=== PATIENT | male | born 1990 | race Two or more races ===

== ENCOUNTER 2017-10-30 10:17 | Inpatient (IN) | payer OTHER ==
[~2017-10-30] VITALS: Ht 162.6 cm; Wt 86.0 kg
[2017-10-30] MEDS ORDERED: SODIUM CHLORIDE 0.9% 1,000 ML IV ONE ×2 (10:28→11:55)
[2017-10-30] MEDS ORDERED: SODIUM CHLORIDE FLUSH 10ML SYR IVF ONE (10:30)
[2017-10-30] MEDS ORDERED: ONDANSETRON ODT 4 MG PO ONE (10:30)
[2017-10-30] MEDS ORDERED: SODIUM CHLORIDE 0.9% 1,000ML IVBOLUS ONE (10:30)
[2017-10-30] MEDS ORDERED: ONDANSETRON ODT 4 MG ONE (10:36)
[2017-10-30] MEDS ORDERED: LORazepam 2 MG/ML, 1ML ONE (10:36)
[2017-10-30] MEDS: LORazepam 2 MG/ML, 1ML IVPush PRN ×3 (10:41→15:01)
[2017-10-30 10:55] LABS: BASOPHILS # (AUTO) 0.02 x10^3/uL (0-0.1); BASOPHILS % (AUTO) 0 % (0-1); EOSINOPHILS % (AUTO) 0 % (1-7); LYMPHOCYTES # (AUTO) 0.78 x10^3/uL (1-3.4); LYMPHOCYTES % (AUTO) 8 % (22-44); MD NO; MEAN CORPUSCULAR HEMOGLOBIN 33.1 pg (27.5-34.5); MEAN CORPUSCULAR HGB CONC 34.8 g/dL (33.2-36.2); MEAN CORPUSCULAR VOLUME 95.3 fL (81-97); MEAN PLATELET VOLUME 6.9 fL (7.4-10.4); MONOCYTES # (AUTO) 0.49 x10^3/uL (0.2-0.8); MONOCYTES % (AUTO) 5 % (2-9); NEUTROPHILS # (AUTO) 8.28 x10^3/uL (1.8-6.8); NEUTROPHILS % (AUTO) 86 % (42-75); PLATELET COUNT 210 x10^3/uL (130-400); RED BLOOD COUNT 5.36 x10^6/uL (4.38-5.82); RED CELL DISTRIBUTION WIDTH 13.5 % (9.4-14.8)
[2017-10-30 11:02] LABS: INTERNATIONAL NORMALIZED RATIO 1.03 (0.93-1.1); PROTHROMBIN TIME 10.6 Seconds (9.6-11.5)
[2017-10-30 11:05] LABS: ANION GAP 11 mmol/L (5-15); CALCIUM 9.3 mg/dL (8.5-10.1); CHLORIDE 103 mmol/L (98-107); SALICYLATE LEVEL 1.7 mg/dL (2.8-20.0)
[2017-10-30 11:09] LABS: ALANINE AMINOTRANSFERASE 68 U/L (12-78); ALKALINE PHOSPHATASE 50 U/L (45-117); BILIRUBIN,TOTAL 0.9 mg/dL (0.2-1.0); CREATININE 1.03 mg/dL (0.7-1.3); TOTAL PROTEIN 8.4 g/dL (6.4-8.2)
[2017-10-30 11:16] LABS: ACETAMINOPHEN < 2 mcg/mL (10-30)
[2017-10-30 11:52] LABS: AMPHETAMINE SCREEN, URINE Negative (Negative); BARBITURATE SCREEN, URINE Negative (Negative)
[2017-10-30 11:56] LABS: BENZODIAZEPINE SCREEN, URINE Positive (Negative); CANNABINOID SCREEN, URINE Negative (Negative); COCAINE SCREEN, URINE Negative (Negative); METHADONE SCREEN, URINE Negative (Negative); OPIATE SCREEN, URINE Negative (Negative)
[2017-10-30 11:57] LABS: MICROSCOPIC INDICATED
[2017-10-30 12:00] LABS: CULTURE INDICATED? NO
[2017-10-30] MEDS ORDERED: SODIUM CHLORIDE FLUSH 10ML SYR IVF PRN (12:00)
[2017-10-30] MEDS ORDERED: LORazepam 1MG TABLET PO PRN ×4 (12:30)
[2017-10-30] MEDS ORDERED: LORazepam 0.5MG TABLET PO PRN (12:30)
[2017-10-30] MEDS ORDERED: hydrALAzine 20 MG/ML, 1ML IVPush PRN (12:30)
[2017-10-30] MEDS ORDERED: BISACODYL 10 MG SUPP PR PRN (12:30)
[2017-10-30] MEDS ORDERED: POLYETHYLENE GLYCOL 17 GM PACKET PO PRN (12:30)
[2017-10-30] MEDS ORDERED: ACETAMINOPHEN 325 MG TABLET PO PRN (12:30)
[2017-10-30] MEDS ORDERED: DOCUSATE 100 MG CAPSULE PO PRN (12:30)
[2017-10-30] MEDS ORDERED: LORazepam 2 MG/ML, 1ML IV PRN (13:00)
[2017-10-30 13:13] LABS: FREE T4 (FREE THYROXINE) 0.95 ng/dL (0.76-1.46); THYROID STIMULATING HORMONE 1.68 mIU/L (0.358-3.740)
[2017-10-30 14:00] VITALS: BP 127/81
[2017-10-30 14:29] VITALS: BP 127/81
[2017-10-30] MEDS: NICOTINE 14MG/24 HR PATCH.TD24 TD SCH (16:05)
[2017-10-30] MEDS: SODIUM CHLORIDE 0.9% 1,000 ML IV SCH ×2 (16:05→18:59)
[2017-10-30 18:30] LABS: TROPONIN I < 0.015 ng/mL (0.000-0.045)
[2017-10-30 19:12] VITALS: BP 108/67
[2017-10-30] MEDS: FAMOTIDINE 20 MG TABLET PO SCH (19:57)
[2017-10-30] MEDS: POTASSIUM CHLORIDE 20 MEQ, MAGNESIUM SULFATE 2 GM, THIAMINE 100 MG, MVI ADULT 10 ML, FO... IV SCH (19:57)
[2017-10-31 00:37] VITALS: BP 131/90
[2017-10-31 05:40] LABS: CHLORIDE 108 mmol/L (98-107)
[2017-10-31 05:46] LABS: ALANINE AMINOTRANSFERASE 55 U/L (12-78); ALBUMIN 3.2 g/dL (3.4-5.0); ALKALINE PHOSPHATASE 42 U/L (45-117); ANION GAP 3 mmol/L (5-15); BILIRUBIN,TOTAL 1.2 mg/dL (0.2-1.0); CALCIUM 8.2 mg/dL (8.5-10.1); CREATININE 0.91 mg/dL (0.7-1.3); TOTAL PROTEIN 7.2 g/dL (6.4-8.2)
[2017-10-31 05:57] LABS: MEAN CORPUSCULAR HEMOGLOBIN 33.2 pg (27.5-34.5); MEAN CORPUSCULAR HGB CONC 35.4 g/dL (33.2-36.2); MEAN CORPUSCULAR VOLUME 93.9 fL (81-97); MEAN PLATELET VOLUME 7.2 fL (7.4-10.4); PLATELET COUNT 190 x10^3/uL (130-400); RED BLOOD COUNT 5.14 x10^6/uL (4.38-5.82); RED CELL DISTRIBUTION WIDTH 13.8 % (9.4-14.8)
[2017-10-31] MEDS: SODIUM CHLORIDE 0.9% 1,000 ML IV SCH ×2 (06:18→13:46)
[2017-10-31 06:39] LABS: BASOPHILS # (AUTO) 0.03 x10^3/uL (0-0.1); BASOPHILS % (AUTO) 1 % (0-1); EOSINOPHILS # (AUTO) 0.15 x10^3/uL (0-0.4); EOSINOPHILS % (AUTO) 3 % (1-7); LYMPHOCYTES # (AUTO) 1.34 x10^3/uL (1-3.4); LYMPHOCYTES % (AUTO) 23 % (22-44); MD NO; MONOCYTES # (AUTO) 0.71 x10^3/uL (0.2-0.8); MONOCYTES % (AUTO) 12 % (2-9); NEUTROPHILS # (AUTO) 3.66 x10^3/uL (1.8-6.8); NEUTROPHILS % (AUTO) 62 % (42-75)
[2017-10-31 07:05] VITALS: BP 115/70
[2017-10-31] MEDS: FAMOTIDINE 20 MG TABLET PO SCH ×2 (08:07→19:59)
[2017-10-31] MEDS: NICOTINE 14MG/24 HR PATCH.TD24 TD SCH (13:47)
[2017-10-31 14:31] VITALS: BP 127/84
[2017-10-31 18:54] VITALS: BP 148/95
[2017-10-31] MEDS: POTASSIUM CHLORIDE 20 MEQ, MAGNESIUM SULFATE 2 GM, THIAMINE 100 MG, MVI ADULT 10 ML, FO... IV SCH (19:59)
[2017-11-01 00:13] VITALS: BP 161/107
[2017-11-01 02:30] VITALS: BP 131/91
[2017-11-01] MEDS: SODIUM CHLORIDE 0.9% 1,000 ML IV SCH ×2 (05:46→13:37)
[2017-11-01 06:25] LABS: ALBUMIN 3.8 g/dL (3.4-5.0); ANION GAP 5 mmol/L (5-15); CALCIUM 8.8 mg/dL (8.5-10.1); CHLORIDE 106 mmol/L (98-107)
[2017-11-01 06:28] LABS: ALANINE AMINOTRANSFERASE 65 U/L (12-78); ALKALINE PHOSPHATASE 47 U/L (45-117); CREATININE 0.93 mg/dL (0.7-1.3); TOTAL PROTEIN 8.5 g/dL (6.4-8.2)
[2017-11-01 07:11] VITALS: BP 121/82
[2017-11-01] MEDS: FAMOTIDINE 20 MG TABLET PO SCH (09:30)
[2017-11-01 12:44] VITALS: BP 157/104
[2017-11-01] MEDS: NICOTINE 14MG/24 HR PATCH.TD24 TD SCH (13:28)
[2017-11-01 13:58] VITALS: BP 161/95
== END 2017-11-01 14:52 | disposition left against medical advice (07) | DRG 101 ==
LOC: ED 11:54 → EDIP 11:55 → ED 12:28 → 4EST 13:15
PROVIDERS: ADMIT Hospitalist; ATTEND Family Medicine
DX: G40.89 Other seizures (principal); F10.231 Alcohol dependence with withdrawal delirium; F10.221 Alcohol dependence with intoxication delirium; F17.210 Nicotine dependence, cigarettes, uncomplicated; Y90.0 Blood alcohol level of less than 20 mg/100 ml; Z53.21 Procedure and treatment not carried out due to patient leaving prior to being seen by health care provider; Z71.6 Tobacco abuse counseling
CPT/HCPCS: 36415; 99285; J7042; 70450; 71045; 80053; 80307; 80329; 81001; 82140; 82550; 83690; 83735; 84100; 84439; 84443; 84484; 85025; 85610; 85730; 87040; 93005; 96360; J3411; J3475; J3480; Q0162; G0480; J2060; J7030

== ENCOUNTER 2018-05-21 14:13 | Emergency (ER) | payer SELFPAY ==
[~2018-05-21] VITALS: Ht 172.7 cm; Wt 78.0 kg
[2018-05-21] MEDS ORDERED: LORazepam 1MG TABLET ONE (14:22)
[2018-05-21] MEDS ORDERED: LORazepam 1MG TABLET PO ONE (14:30)
[2018-05-21 14:38] LABS: BASOPHILS # (AUTO) 0.02 x10^3/uL (0-0.1); BASOPHILS % (AUTO) 1 % (0-1); EOSINOPHILS # (AUTO) 0.05 x10^3/uL (0-0.4); EOSINOPHILS % (AUTO) 1 % (1-7); LYMPHOCYTES % (AUTO) 27 % (22-44); MD NO; MEAN CORPUSCULAR HEMOGLOBIN 32.2 pg (27.5-34.5); MEAN CORPUSCULAR HGB CONC 34.6 g/dL (33.2-36.2); MEAN CORPUSCULAR VOLUME 92.9 fL (81-97); MEAN PLATELET VOLUME 6.5 fL (7.4-10.4); MONOCYTES # (AUTO) 0.23 x10^3/uL (0.2-0.8); MONOCYTES % (AUTO) 5 % (2-9); NEUTROPHILS # (AUTO) 2.92 x10^3/uL (1.8-6.8); NEUTROPHILS % (AUTO) 66 % (42-75); PLATELET COUNT 328 x10^3/uL (130-400); RED BLOOD COUNT 5.79 x10^6/uL (4.38-5.82)
[2018-05-21 14:48] LABS: ALBUMIN 3.7 g/dL (3.4-5.0); ANION GAP 9 mmol/L (5-15); CALCIUM 8.5 mg/dL (8.5-10.1); CHLORIDE 108 mmol/L (98-107); CREATININE 1.28 mg/dL (0.7-1.3)
--- NOTE | 2018-05-21 15:30 | NUR ---
PT SLEEPING IN [facility]. NAD NOTED AT THIS TIME. WILL CONTINUE TO MONITOR.
--- NOTE | 2018-05-21 16:30 | NUR ---
PT SLEEPING IN GURNEY. EQUAL RISE AND FALL OF CHEST. NAD NOTED. WILL CONTINUE TO MONITOR.
[2018-05-21 16:49] VITALS: BP 120/78
--- NOTE | 2018-05-21 17:06 | NUR ---
PT GIVEN D/C PAPERWORK. PT WITH STEADY GAIT WHILE AMUBLATING OUT OF DEPARTMENT. PT VERBALIZED UNDERSTANDING OF PAPERWORK.
== END 2018-05-21 17:10 | disposition home or self-care (01) ==
LOC: ED 16:02
DX: F10.239 Alcohol dependence with withdrawal, unspecified (principal); F17.210 Nicotine dependence, cigarettes, uncomplicated
CPT/HCPCS: 36415; 80048; 82040; 85025; 99283

== ENCOUNTER 2018-10-06 11:45 | Emergency (ER) | payer SELFPAY ==
[~2018-10-06] VITALS: Ht 165.1 cm; Wt 85.0 kg
[2018-10-06] MEDS ORDERED: THIAMINE 100MG TABLET PO ONE (12:00)
[2018-10-06] MEDS ORDERED: LORazepam 1MG TABLET PO ONE (12:00)
[2018-10-06] MEDS ORDERED: THIAMINE 100MG TABLET ONE (12:10)
[2018-10-06] MEDS ORDERED: LORazepam 1MG TABLET ONE (12:10)
--- NOTE | 2018-10-06 12:13 | NUR ---
pt in gown. md martha godinez. cardiac, nibp and o2 monitoring in place. call light in reach and pt instructed to call before getting up. pt agrees to this and is able to repeat back instructions for calling rn. pt medicated per order at this time. no other wants on needs expressed.
[2018-10-06 12:17] LABS: BASOPHILS # (AUTO) 0.01 x10^3/uL (0-0.1); BASOPHILS % (AUTO) 0 % (0-1); EOSINOPHILS # (AUTO) 0.04 x10^3/uL (0-0.4); EOSINOPHILS % (AUTO) 1 % (1-7); LYMPHOCYTES # (AUTO) 0.65 x10^3/uL (1-3.4); LYMPHOCYTES % (AUTO) 9 % (22-44); MD NO; MEAN CORPUSCULAR HGB CONC 33.8 g/dL (33.2-36.2); MEAN CORPUSCULAR VOLUME 91.6 fL (81-97); MONOCYTES # (AUTO) 0.15 x10^3/uL (0.2-0.8); MONOCYTES % (AUTO) 2 % (2-9); NEUTROPHILS # (AUTO) 6.41 x10^3/uL (1.8-6.8); NEUTROPHILS % (AUTO) 88 % (42-75); PLATELET COUNT 182 x10^3/uL (130-400); RED BLOOD COUNT 5.27 x10^6/uL (4.38-5.82); RED CELL DISTRIBUTION WIDTH 14.4 % (9.4-14.8)
[2018-10-06 12:30] LABS: ALBUMIN 4.1 g/dL (3.4-5.0); ANION GAP 13 mmol/L (5-15); CHLORIDE 99 mmol/L (98-107); CREATININE 0.88 mg/dL (0.7-1.3)
[2018-10-06] MEDS ORDERED: ACETAMINOPHEN 500 MG TABLET ONE (12:38)
[2018-10-06 12:44] VITALS: BP 126/74
[2018-10-06] MEDS ORDERED: ACETAMINOPHEN 500 MG TABLET PO ONE (13:00)
== END 2018-10-06 13:08 | disposition home or self-care (01) ==
LOC: ED 12:14
DX: F10.239 Alcohol dependence with withdrawal, unspecified (principal); F10.229 Alcohol dependence with intoxication, unspecified; Y90.0 Blood alcohol level of less than 20 mg/100 ml
CPT/HCPCS: 36415; 80048; 82040; 85025; 99284